=== PATIENT | male | born 1975 | race Caucasian/White ===

== ENCOUNTER 2016-11-19 14:29 | Emergency (ER) | payer MEDICAID, OTHER ==
[~2016-11-19] VITALS: Ht 162.6 cm; Wt 56.7 kg
--- NOTE | 2016-11-19 14:41 | ED GU-Male ---
General Chief Complaint: -Male Stated Complaint: LEFT TESTICLE PAIN/SWELLING Source: patient, RN notes reviewed Exam Limitations: no limitations History of Present Illness Time seen by provider: 14:41 Initial Comments As above and below. Pain has been present for months. Admits to sports injury on his left side years ago. Not sure if related. Not sure why just presenting now for this. Timing/Duration: other (months) Severity/Quality: moderate (8/10), aching Location: scrotal (left) Radiation: none Activities at Onset: other (unknown) Modifying Factors: Worsens With Movement, Worsens With Palpation Associated Symptoms: denies symptoms Allergies and Home Medications Allergies Coded Allergies: diazepam (Verified Adverse Reaction, Unknown, 11/19/16) Uncoded Allergies: ANTIDEPRESSANTS (Allergy, Unknown, 11/19/16) Home Medications Doxycycline Hyclate 100 Mg Capsule, 100 MG PO BID, #20 Ref 0 Prescribed by: LORENA DAY on 11/19/16 1626 Naproxen Sodium 550 Mg Tablet, 550 MG PO Q12H PRN for testicle pain, #20 Ref 0 Prescribed by: LORENA DAY on 11/19/16 1626 [Meloxicam] , (Reported) [Soma] , (Reported) Constitutional: see HPI Genitourinary: see HPI, pain (left testicle) All Other Systemes Reviewed Negative Unless Noted: Yes (Negative excepted noted.) Past Vzqfssa-Xwkzox-Pulywm Hx Patient Social History Recent Foreign Travel: No Contact w/Someone Who Travel: No Physical Exam Vital Signs Capillary Refill : General Appearance: WD/WN, no apparent distress Cardiovascular: regular rate, rhythm Respiratory: no respiratory distress Rectal: deferred Male: testicular tenderness (left) Neurologic/Psychiatric: no motor/sensory deficits, alert, oriented x 3 Skin: warm/dry Lymphatic: no adenopathy Progress/Results/Core Measures Results/Orders Lab Results Laboratory Tests Test 11/19/16 15:23 Range/Units Urine Color YELLOW Urine Clarity CLEAR Urine pH 7 5-9 Urine Specific [place] 1.010 L 1.016-1.022 Urine Protein NEGATIVE NEGATIVE Urine Glucose (UA) NEGATIVE NEGATIVE Urine Ketones NEGATIVE NEGATIVE Urine Nitrite NEGATIVE NEGATIVE Urine Bilirubin NEGATIVE NEGATIVE Urine Urobilinogen NORMAL NORMAL MG/DL Urine Leukocyte Esterase NEGATIVE NEGATIVE Urine RBC (Auto) 3+ H NEGATIVE Urine RBC 5-10 H /HPF Urine WBC RARE /HPF Urine Crystals NONE /LPF Urine Bacteria NEGATIVE /HPF Urine Casts NONE /LPF Urine Mucus NEGATIVE /LPF Urine Culture Indicated NO Urine Chlamydia DNA Probe Negative Negative Ur Neisseria gonorrhoeae DNA (PCR) Negative Negative My Orders Orders - LORENA DAY DO Ua Culture If Indicated (11/19/16 14:39) Neis Mike Dna Urine Test (11/19/16 14:39) Chlamydia Dna Urine Test (11/19/16 14:39) Us Scrotum (Testicle) [id number] (11/19/16 14:39) Vital Signs/I&O Diagnostic Imaging Diagonstic Imaging: Ultrasound Plain Films/CT/US/NM/MRI: other (testicle-left epididymal cyst and probable epididymitis) Departure Impression Impression: Primary Impression: Epididymal cyst Additional Impression: Epididymitis, left Disposition: 01 HOME, SELF-CARE Condition: Stable Departure-Patient Inst. Decision time for Depature: 16:23 Referrals: TAPAN MEMBRENO MD Patient Instructions: Epididymitis (DC) Scripts Doxycycline Hyclate (Doxycycline Hyclate) 100 Mg Capsule 100 MG PO BID, #20 CAP 0 Refills Prov: LORENA DAY DO 11/19/16 Naproxen Sodium (Anaprox Ds) 550 Mg Tablet 550 MG PO Q12H Y for testicle pain, #20 TAB 0 Refills Prov: LORENA DAY DO 11/19/16 LORENA DAY DO Nov 19, 2016 14:41
[2016-11-19] MEDS ORDERED: SOMA (14:46)
[2016-11-19] MEDS ORDERED: MELOXICAM (14:46)
--- NOTE | 2016-11-19 15:46 | Diagnostic Imaging Report ---
INDICATION: Left testicular pain. Duplex scrotal ultrasound was done with grayscale, spectral waveform and color Doppler flow analysis. FINDINGS: Right testicle measures 4.6 x 2.5 x 3.0 cm. Left testicle measures 4.8 x 2.5 x 3.8 cm. There is a left epididymal cyst. There is a left hydrocele. The tail of the epididymis on the left appears enlarged and hyperemic. The testes have homogeneous echogenicity and vascularity. IMPRESSION: Left epididymal septated cyst and probable left epididymitis. Dictated by: Dictated on workstation # [id number]
[2016-11-19 15:59] LABS: BILIRUBIN,URINE NEGATIVE (NEGATIVE); KETONES,URINE NEGATIVE (NEGATIVE); LEUKOCYTE ESTERASE ,URINE NEGATIVE (NEGATIVE); NITRITE,URINE NEGATIVE (NEGATIVE); PH,URINE 7 (5-9); PROTEIN,URINE NEGATIVE (NEGATIVE); UROBILINOGEN,URINE NORMAL (NORMAL)
[2016-11-19 16:14] LABS: WBC,URINE RARE /HPF
[2016-11-19] MEDS ORDERED: DOXY100C2 PO (16:26)
[2016-11-19] MEDS ORDERED: NAPR550T PO (16:26)
[2016-11-19 16:30] VITALS: BP 127/86
[2016-11-21 08:01] LABS: CHLAMYDIA DNA URINE Negative (Negative)
[2016-11-21 08:05] LABS: NEISSERIA GONORRHEA DNA URINE Negative (Negative)
== END 2016-11-19 16:31 | disposition home or self-care (01) ==
LOC: EDUNIT# 14:29 → ER 14:32
DX: N45.1 Epididymitis (principal); N50.3 Cyst of epididymis
CPT/HCPCS: 36415; 76870; 81000; 87491; 87591; 99282